=== PATIENT | female | born 1950 | race Caucasian/White ===

== ENCOUNTER 2023-03-20 10:01 | Day surgery (SDC) | payer OTHER ==
[~2023-03-20] VITALS: Ht 152.4 cm; Wt 68.0 kg
[2023-03-20] MEDS ORDERED: LR 1,000 ML IV.SOLN IV ONE (13:30)
[2023-03-20] MEDS ORDERED: PROPOFOL 200MG/ 20ML VIAL (DIPRIVAN) IV ONE (13:30)
[2023-03-20] MEDS ORDERED: BUPIVACAINE /PF 0.25% 30 ML VIAL INJ ONE (13:30)
[2023-03-20] MEDS ORDERED: LIDOCAINE/EPI 1% 1:100000 20 ML VIAL ONE (13:30)
[2023-03-20] MEDS ORDERED: NS IRRIG SOLN 1000 ML IR ONE (13:30)
[2023-03-20] MEDS ORDERED: fentaNYL CITRATE/PF 100 MCG/2 ML AMP ONE (13:41)
[2023-03-20] MEDS ORDERED: MIDAZOLAM HCL 5 MG/5 ML VIAL ONE (13:41)
[2023-03-20] MEDS ORDERED: ONDANSETRON HCL 4 MG/2 ML VIAL IVP PRN (14:15)
[2023-03-20] MEDS ORDERED: METOCLOPRAMIDE HCL 10 MG/2 ML VIAL IVP PRN (14:15)
[2023-03-20] MEDS ORDERED: HYDROmorphone 1 MG/ML INJ. CARTRIDGE IVP PRN (14:15)
[2023-03-20] MEDS ORDERED: HYDROmorphone 1 MG/ML INJ. CARTRIDGE ONE (15:38)
[2023-03-20 18:06] VITALS: O2SAT 97
[2023-03-20 18:41] VITALS: BP_SYST 119; PULSE 73; RESP 17
== END 2023-03-20 17:32 | disposition home or self-care (01) ==
LOC: SDS 10:01 → SMU 10:02 → SDS 17:32
PROVIDERS: ATTEND Surgery
DX: D12.8 Benign neoplasm of rectum (principal); K62.5 Hemorrhage of anus and rectum; K64.9 Unspecified hemorrhoids; I10 Essential (primary) hypertension; E78.5 Hyperlipidemia, unspecified; Z79.899 Other long term (current) drug therapy
CPT/HCPCS: 87081; 93005 ×2; 45171; 88304; J3490; J2250; J2704; J3010; J1170; J7120